=== PATIENT | male | born 1985 | race Caucasian/White ===

== ENCOUNTER → 2017-12-08 | Outpatient (CLI) | payer BC, OTHER ==
[~2017-12-08] VITALS: Ht 152.4 cm; Wt 83.5 kg
[~2017-12-08] MED LIST: MOBIC15 MG PO; NEXIUM40 MG PO; ZANAFLEX2 MG PO
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
[2017-12-08 09:57] VITALS: BP 146/84
== END | disposition home or self-care (01) ==
LOC: PAIN 09:01
DX: M54.12 Radiculopathy, cervical region (principal); G89.29 Other chronic pain; Z86.69 Personal history of other diseases of the nervous system and sense organs; Z87.442 Personal history of urinary calculi; Z79.899 Other long term (current) drug therapy

== ENCOUNTER → 2018-01-05 | Outpatient (CLI) | payer BC, OTHER ==
[~2018-01-05] VITALS: Ht 175.3 cm; Wt 84.4 kg
--- NOTE | ~2018-01-05 | HPC ---
[facility] [place] [address] [place] [address] PAIN MANAGEMENT CONSULTATION Name: MORROKP G Room #: REG [facility].#: [id number] Admission: 01/05/18 Attend Phys: Papo Parks MD Discharge: Date of : 81 Report #: [id number] THIS REPORT FOR: //name// CC: EDGARD Cosby DATE OF SERVICE: 01/05/2018 REASON FOR VISIT: Followup visit for cervical radiculopathy. HISTORY OF PRESENT ILLNESS: The patient returns to clinic today reporting that he had 2 weeks of complete pain relief after his last epidural injection. Pain then gradually returned to baseline. He still has pain that he describes as severe aching sensation in the neck. Head is worse; however, the pain score is 4. He is a fairly stoic young man. Pain has some radiation into the right arm consistent with a right cervical radiculopathy. Last injection was performed at the level of the C6-C7. He has pain in his right arm, it feels heavy. 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 He does find that the pain is fatiguing. He sometimes feels cloudy and we discussed this. He is not on medication that would cause that. I believe that the cloudiness is result of dealing with pain throughout the day. Pain is continuous. We reviewed once again his MRI showing evidence of the right midline at C5-C6 disk extrusion or early herniation. There is no foraminal stenosis, but this is the likely cause. Last injection was performed at the C7-T1 interspace. I dictated this as the C6-C7 interspace, but as I review the films from previous, it was at C7-T1. He had a good response, but I think that it would be reasonable to repeat the injection today at C6-C7 interspace. Although there is some narrowing there, I think that we can provide the injection safely and hopefully for a longer duration of response if we can get a broader coverage. PHYSICAL EXAMINATION: GENERAL: He is a pleasant, very forthright, fit-appearing 32-year-old. VITAL SIGNS: His blood pressure today is 144/83, heart rate 75, respirations 14. Cervical range of motion is mildly limited in extension. EXTREMITIES: Examination of strength and reflexes in the upper and lower extremities are normal. There is no evidence of hyperreflexia to suggest additional cord compression. IMPRESSION: 1. Cervical radiculopathy related to C5-C6 disk injury. 2. Right cervical radiculopathy. [facility] [address] [place] [address] PAIN MANAGEMENT CONSULTATION Name: KP HOOKER Room #: REG [facility]#: [id number] Admission: 01/05/18 Attend Phys: Papo Parks MD Discharge: Date of : 81 Report #: [id number] PROCEDURE: Cervical epidural steroid injection under fluoroscopic guidance C6-C7. DESCRIPTION OF PROCEDURE: The patient was taken to fluoroscopic suite, placed prone, skin prepped with ChloraPrep, skin anesthetized. A 20-gauge Tuohy epidural needle advanced at first attempt in the epidural space with loss of resistance. There was no blood nor CSF aspirated. A mL of Omnipaque was injected. The dye spread appeared to be all along the right lateral recess and extended into the foramen and along the pedicles extending as far as C2. I reaspirated, there was no CSF. Pattern on the lateral view did not show any evidence of intrathecal injection or layering. There was no discomfort. I then injected a total of 4 mL of 0.5% lidocaine mixed with 80 mg of triamcinolone. He tolerated the procedure well. Pain was 0 at discharge. Followup visit scheduled in 1 month. By: 1030 [id number] Papo Parks MD /nt
[2018-01-05 08:59] VITALS: BP 144/83
== END | disposition home or self-care (01) ==
LOC: PAIN 06:42
DX: M54.12 Radiculopathy, cervical region (principal); Z98.890 Other specified postprocedural states; Z91.09 Other allergy status, other than to drugs and biological substances

== ENCOUNTER 2018-01-20 11:40 | Emergency (ER) | payer BC, OTHER ==
[~2018-01-20] VITALS: Ht 175.3 cm; Wt 81.7 kg
[2018-01-20] MEDS ORDERED: MOBIC7.5 MG PO (13:09)
[2018-01-20 14:04] VITALS: BP 142/89
== END 2018-01-20 14:04 | disposition home or self-care (01) ==
LOC: ER 11:40
DX: S83.8X2A Sprain of other specified parts of left knee, initial encounter (principal); Z88.1 Allergy status to other antibiotic agents; W18.39XA Other fall on same level, initial encounter; Y92.89 Other specified places as the place of occurrence of the external cause; Y93.89 Activity, other specified; Y99.8 Other external cause status

== ENCOUNTER → 2018-02-23 | Outpatient (CLI) | payer BC, OTHER ==
[~2018-02-23] VITALS: Ht 175.3 cm; Wt 84.8 kg
[~2018-02-23] MED LIST changes: +LISINOPRIL10 MG PO; +MOBIC7.5 MG PO; +NAPROSYN500 MG PO; +NEURONTIN100 MG PO; +NORCO 5-325 TA1 EACH PO; +TIZANIDINE HCL2 M1 PO
--- NOTE | ~2018-02-23 | HPC ---
[facility] [address] [place] [address] PAIN MANAGEMENT CONSULTATION Name: KP HOOKER Room #: REG [facility].#: [id number] Admission: 02/23/18 Attend Phys: Papo Parks MD Discharge: Date of : 81 Report #: [id number] THIS REPORT FOR: //name// CC: EDGARD Cosby DATE OF SERVICE: 02/23/2018 Followup visit for cervicalgia with radiculopathy. The patient returns to pain clinic today for further consultation and ultimately a third epidural injection. He has had cervical radiculopathy now for about 18 months. He has responded to two epidural injections, but unfortunately the duration of response has been moderate to short period and the hope has been that he will continue to see some resolution of his radicular symptoms as this injury heals and that he would be able to avoid surgery. Since we are now nearly to the end of his epidural injections over this time course, we also had a continuing discussion of next options including anterior cervical diskectomy and fusion. I had a number of questions and I have referred him to Dr. Raul Duvall for an evaluation. The pain remains fairly severe in his neck, but also radiates into his right arm, which feels tired and weak. He has pain that radiates up into his head. He is getting some occipital headaches. 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 Blood pressure 131/86, heart rate 72. Examination of the neck reveals tenderness. Pain is positive with forward flexion, extension and rotation. Has mild radicular symptoms in the right C6-C7 distribution. He has a positive Spurling's. MRI demonstrates reversal of cervical lordosis and a right-sided midline protrusion or probable early herniation dated from the MRI in November, resulting in radiculopathy. IMPRESSION: Cervical radiculopathy. PROCEDURE: Cervical epidural injection under fluoroscopic guidance. DESCRIPTION OF PROCEDURE: He was taken to the fluoroscopic suite and placed prone. Skin prepped with ChloraPrep and skin anesthetized over the C6-C7 interspace. A 20-gauge Tuohy epidural needle advanced in first attempt in the epidural space with loss of resistance technique. There was no blood or CSF aspirated. 1 mL of Omnipaque was injected. Good spread of dye was observed. Then, 3 mL of 0.5% lidocaine mixed with 80 mg of triamcinolone was injected into [address] [address] PAIN MANAGEMENT CONSULTATION Name: MORROKP Room #: REG CLI [facility]#: [id number] Admission: 02/23/18 Attend Phys: Papo Parsk MD Discharge: Date of : 81 Report #: [id number] the epidural space. He tolerated the procedure well and was observed for 45 minutes and discharged. Followup visit planned in the pain clinic in 2-3 months. We will also see him after Dr. Duvall sees him for possible surgical intervention. We did discuss the opioid crisis. I have agreed to provide him with 30 hydrocodone to be used for bedtime severe pain and help with sleep. By: 1630 22 Papo Parks MD /nt
[2018-02-23 09:05] VITALS: BP 131/86
== END | disposition home or self-care (01) ==
LOC: PAIN 08:36
DX: M54.12 Radiculopathy, cervical region (principal); G89.29 Other chronic pain; Z88.8 Allergy status to other drugs, medicaments and biological substances; Z79.899 Other long term (current) drug therapy; Z98.890 Other specified postprocedural states

== ENCOUNTER → 2018-05-01 | Outpatient (CLI) | payer BC, OTHER ==
[~2018-05-01] VITALS: Ht 177.8 cm; Wt 84.4 kg
--- NOTE | ~2018-05-01 | HPC ---
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 He has an MRI scan from 11/23/2017 that shows evidence of right midline C5-C6 posterior disk bulging with an early herniation. It is not associated with the cord compression. His symptoms have been persistent. He has difficulty sleeping at night. He has had 3 epidural injections, each providing good relief but only for short term few weeks at a time. At this point in time, I would like him to see Dr. Raul Duvall for surgical consultation. He may be a candidate for an anterior cervical diskectomy and fusion. MEDICATIONS: Hydrocodone 5/325, 30 tablets lasted nearly 4 months, lisinopril 10 mg daily and naproxen sodium 500 mg b.i.d. PHYSICAL EXAMINATION: VITAL SIGNS: Blood pressure 129/78, heart rate 62, respirations 16 and his BMI is 26.7. GENERAL: He appears fit. MUSCULOSKELETAL: There is no asymmetry to the muscles or appearance of the right and left upper extremity. Cervical range of motion is limited in flexion, which reproduces symptoms radiating down the arm. Biceps, triceps, deltoid and order filler strength are all judged to be symmetrically equal and within normal limits bilaterally. Sensation intact. Deep tendon reflexes 2+ biceps, diminished at the triceps on the right in comparison to the left. IMPRESSION: Cervical radiculopathy. PLAN: 1. We will hold off on cervical epidural injection. He has not had enough lasting relief to warrant, I think another injection at this time, although if Dr. Duvall decides against surgery, may consider repeating an injection with hopes that we will provide symptomatic relief over time as we allow this to reabsorb. 2. I renewed his hydrocodone. He is at very low dose. He uses less than 1 tablet every 3-4 days and mostly just to help with sleep [place] [address] PAIN MANAGEMENT CONSULTATION Name: KP HOOKER Room #: REG [facility]#: [id number] Admission: 05/01/18 ������������������ Attend Phys: Papo Parks MD Discharge: ������������������ Date of : 81 Report #: [id number] severe. 3. Followup visit as needed. ��������������������������������������������� ���������������������������������������� By: ��������������������������������������������� 1420 0047 Papo Parks MD /nt
[2018-05-01 13:43] VITALS: BP 129/78
--- NOTE | 2018-05-01 13:45 | NUR ---
Pain Clinic Assessment: 1. History of Osteoarthritis: Not Applicable History of Rheumatoid Arthritis: Not Applicable 2. Height: 5 ft. 10 in. 177.8 cm. Weight: 186.0 lb. oz. 84.369 kg. Patient's BMI: 26.7 3. Vital Signs: BP: 129/78 Pulse: 62 Resp: 16 Temp: 02 Sat: 99 ECG Mon: 4. Pain Intensity: 4 5. Fall Risk: Dizziness: N Needs help standing or walking: N Fallen in the last 3 months: N Fall risk comments: 6. Patient on Blood Thinner: None 7. History of Hypertension: Y 8. Opioid Therapy greater than 6 weeks: N Opiate Contract Signed: 9. Risk Assessment Tool Provided: *0 LOW RISK 10. Functional Assessment Tool: 11. Recreational Drug Use: Never Drug Type: Tobacco Use: Never Smoker Tobacco Type: Amount or Packs/day: How Many Years: Alcohol Use: No Frequency: Quant:
== END ==
LOC: PAIN 07:18
DX: M54.12 Radiculopathy, cervical region (principal); Z79.899 Other long term (current) drug therapy